=== PATIENT | female | born 1950 | race Caucasian/White ===

== ENCOUNTER 2016-12-06 19:12 | Emergency (ER) | payer MEDICARE, OTHER ==
[~2016-12-06] VITALS: Ht 160 cm; Wt 59.0 kg
--- NOTE | 2016-12-06 19:25 | NUR ---
To bed 7 a 66 yo female patient bb family w c/o left flank, abd, leg pain x 2 hrs. Patient is aaox4, nad noted. vss. nondiaphoretic. ambulatory. gowned. comfort measures rendered.
[2016-12-06] MEDS ORDERED: ONDANSETRON HCL/PF 4 MG/2 ML VIAL ONE (19:47)
[2016-12-06] MEDS ORDERED: MORPHINE SULFATE INJ 4 MG/ML DISP.SYRIN ONE (19:48)
[2016-12-06 19:51] LABS: BASOPHILS % (AUTO) 0.5 % (0.0-2.0); EOSINOPHILS # (AUTO) 0.1 /CMM (0.0-0.7); EOSINOPHILS % (AUTO) 1.3 % (0.0-6.0); HEMATOCRIT 36 % (33-45); HEMOGLOBIN 12.4 g/dL (11.5-14.8); LYMPHOCYTES % (AUTO) 13.2 % (20.0-44.0); MEAN CORPUSCULAR HEMOGLOBIN 31 PG (26.0-33.0); MEAN CORPUSCULAR HGB CONC 34 g/dl (31.0-36.0); MEAN CORPUSCULAR VOLUME 90 fL (82-100); MONOCYTES # (AUTO) 0.4 /CMM (0.1-1.30); MONOCYTES % (AUTO) 4.9 % (2.0-12.0); NEUTROPHILS # (AUTO) 6.1 /CMM (1.8-8.9); NEUTROPHILS % (AUTO) 80.1 % (43.0-81.0); PLATELET COUNT (AUTO) 258 /CMM (150-450); RED BLOOD CELL COUNT(AUTO) 4.04 MIL/uL (4.0-5.2); WHITE BLOOD COUNT (AUTO) 7.6 K/uL (4.3-11.0)
--- NOTE | 2016-12-06 19:55 | NUR ---
Started a saline lock on the lac g20, blood drawn and sent to lab.
[2016-12-06] MEDS ORDERED: IV NS 0.9% 1,000 ML BAG IV ONE (20:00)
[2016-12-06] MEDS ORDERED: ONDANSETRON HCL/PF 4 MG/2 ML VIAL IVP ONE (20:00)
[2016-12-06] MEDS ORDERED: MORPHINE SULFATE INJ 2 MG/ML DISP.SYRIN IV ONE (20:00)
[2016-12-06] MEDS ORDERED: PANTOPRAZOLE 40 MG VIAL IV ONE (20:00)
--- NOTE | 2016-12-06 20:00 | NUR ---
patient to ct.
[2016-12-06] MEDS ORDERED: PANTOPRAZOLE 40 MG VIAL ONE (20:02)
--- NOTE | 2016-12-06 20:20 | NUR ---
back from ct.
[2016-12-06 20:31] LABS: APPEARANCE,URINE Slightly Cloudy (CLEAR); BILIRUBIN,URINE Negative (NEGATIVE); BLOOD, URINE Trace-intact Ery/uL (NEGATIVE); COLOR,URINE Light yellow (YELLOW); KETONES,URINE Negative (NEGATIVE); LEUKOCYTE ESTERASE ,URINE Negative (NEGATIVE); NITRITE, URINE Negative (NEGATIVE); PH,URINE 7.5 (5.0-8.0); PROTEIN,URINE Negative (NEGATIVE); UGLUCOSE Negative (NEGATIVE); UROBILINOGEN,URINE 0.2 EU/dL (0.2)
[2016-12-06 20:32] LABS: ALANINE AMINOTRANSFERASE 54 U/L (12-78); ALBUMIN 3.9 g/dL (3.4-5.0); ALKALINE PHOSPHATASE 62 U/L (46-116); ASPARTATE AMINOTRANSFERASE 25 U/L (15-37); BILIRUBIN,TOTAL 0.2 mg/dL (0.2-1.0); CALCIUM, SERUM 8.7 mg/dL (8.5-10.1); CHLORIDE 107 mmol/L (98-107); GLUCOSE 113 mg/dL (74-106); LIPASE 247 U/L (73-393); POTASSIUM 3.8 mmol/L (3.5-5.1); SODIUM SERUM 140 mmol/L (136-145); TOTAL PROTEIN, SERUM 7.3 g/dL (6.4-8.2); UREA NITROGEN, BLOOD 18 mg/dL (7-18)
[2016-12-06 20:33] LABS: TROPONIN I < 0.017 ng/mL (0.00-0.056)
[2016-12-06 20:42] LABS: BACTERIA,URINE Few /HPF (None Seen); RBC,URINE 0-2 /HPF (0-2); SQUAMOUS EPITHELIAL CELL,UR Few /HPF (None Seen)
[2016-12-06 20:42] LABS: CARBON DIOXIDE 25 mmol/L (21-32)
--- NOTE | 2016-12-06 22:35 | NUR ---
IV removed. Catheter intact and site benign. Pressure and 4x4 applied to site. No bleeding noted. Patient discharged to home in stable condition. Written and verbal after care instructions given. Patient verbalizes understanding of instruction. Patient is ambulatory with steady gait, no further complaints.
[2016-12-06 22:36] VITALS: BP 135/74
== END 2016-12-06 22:36 | disposition home or self-care (01) ==
LOC: ER 19:16
DX: N23 Unspecified renal colic (principal); N39.0 Urinary tract infection, site not specified; J45.909 Unspecified asthma, uncomplicated; Z87.442 Personal history of urinary calculi
CPT/HCPCS: 36415; 74176; 80048; 80076; 81001; 83605; 83690; 84484; 85025; 87086; 93005; 96361; 96374; 96375; 99285; A4606; C9113; J2270; J2405; J7030; 81000-TC; Z7610

== ENCOUNTER 2017-04-02 22:05 | Emergency (ER) | payer MEDICARE, OTHER ==
[~2017-04-02] VITALS: Ht 160 cm; Wt 59.0 kg
[2017-04-02 22:12] VITALS: BP 143/96
[2017-04-02 22:32] LABS: BASOPHILS # (AUTO) 0.1 /CMM (0.0-0.2); BASOPHILS % (AUTO) 1.4 % (0.0-2.0); EOSINOPHILS # (AUTO) 0.2 /CMM (0.0-0.7); HEMATOCRIT 37 % (33-45); HEMOGLOBIN 12.6 g/dL (11.5-14.8); LYMPHOCYTES # (AUTO) 1.9 /CMM (0.8-4.8); LYMPHOCYTES % (AUTO) 30.3 % (20.0-44.0); MEAN CORPUSCULAR HEMOGLOBIN 31 PG (26.0-33.0); MEAN CORPUSCULAR HGB CONC 34 g/dl (31.0-36.0); MEAN CORPUSCULAR VOLUME 89 fL (82-100); MONOCYTES # (AUTO) 0.4 /CMM (0.1-1.30); MONOCYTES % (AUTO) 6.9 % (2.0-12.0); NEUTROPHILS # (AUTO) 3.7 /CMM (1.8-8.9); NEUTROPHILS % (AUTO) 58.4 % (43.0-81.0); PLATELET COUNT (AUTO) 224 /CMM (150-450); RDW COEFFICIENT OF VARIATION 13.3 (11.5-15.0); RED BLOOD CELL COUNT(AUTO) 4.12 MIL/uL (4.0-5.2); WHITE BLOOD COUNT (AUTO) 6.3 K/uL (4.3-11.0)
[2017-04-02 22:53] LABS: CALCIUM, SERUM 8.9 mg/dL (8.5-10.1); CARBON DIOXIDE 25 mmol/L (21-32); CHLORIDE 106 mmol/L (98-107); CREATININE 0.9 mg/dL (0.6-1.3); GLUCOSE 110 mg/dL (74-106); POTASSIUM 3.4 mmol/L (3.5-5.1); SODIUM SERUM 141 mmol/L (136-145); UREA NITROGEN, BLOOD 26 mg/dL (7-18)
[2017-04-02 22:56] LABS: INR 0.98 (0.87-1.13)
[2017-04-02 23:01] LABS: TROPONIN I < 0.017 ng/mL (0.00-0.056)
--- NOTE | 2017-04-03 00:05 | NUR ---
IV removed. Catheter intact and site benign. Pressure and 4x4 applied to site. No bleeding noted. Patient discharged to home in stable condition. Written and verbal after care instructions given. Patient verbalizes understanding of instruction. ambulatory with a steady gait
== END 2017-04-03 00:06 | disposition home or self-care (01) ==
LOC: ER 22:09
DX: R06.02 Shortness of breath (principal); J45.909 Unspecified asthma, uncomplicated; K75.9 Inflammatory liver disease, unspecified; Z87.442 Personal history of urinary calculi
CPT/HCPCS: 36415; 71045-TC; 80048-TC; 83880; 84484-TC; 85025-TC; 85730-TC; A4606; Z7610

== ENCOUNTER 2018-12-13 16:41 | Emergency (ER) | payer MEDICARE, OTHER ==
[~2018-12-13] VITALS: Ht 152.4 cm; Wt 63.5 kg
[2018-12-13 17:04] VITALS: BP 131/83
--- NOTE | 2018-12-13 17:50 | NUR ---
Patient discharged to home in stable condition. Written and verbal after care instructions given and prescription. Patient verbalizes understanding of instruction.
--- NOTE | 2018-12-13 17:51 | NUR ---
Patient agrees to call pmd in 2 days verbalized understanding
== END 2018-12-13 17:51 | disposition home or self-care (01) ==
LOC: ER 16:41
DX: K64.4 Residual hemorrhoidal skin tags (principal); K59.00 Constipation, unspecified; J45.909 Unspecified asthma, uncomplicated; Z87.442 Personal history of urinary calculi

== ENCOUNTER 2021-08-17 14:28 | Emergency (ER) | payer MEDICARE, OTHER ==
[~2021-08-17] VITALS: Ht 152.4 cm; Wt 63.5 kg
[2021-08-17 14:36] VITALS: BP 157/75
[2021-08-17] MEDS ORDERED: KETOROLAC TROMETHAMINE INJ 30 MG/ML VIAL ONE (14:48)
[2021-08-17] MEDS ORDERED: NAPR-1164 PO (14:53)
[2021-08-17] MEDS ORDERED: KETOROLAC TROMETHAMINE INJ 60 MG/2 ML VIAL IM ONE (15:00)
--- NOTE | 2021-08-17 15:04 | NUR ---
Patient discharged to home in stable condition. Written and verbal after care instructions given. Patient verbalizes understanding of instruction.
== END 2021-08-17 15:04 | disposition home or self-care (01) ==
LOC: ER 14:32
DX: M25.50 Pain in unspecified joint (principal); J45.909 Unspecified asthma, uncomplicated; Z87.442 Personal history of urinary calculi
CPT/HCPCS: 96372; 99283; J1885